=== PATIENT | female | born 1960 | race Caucasian/White ===

== ENCOUNTER 2024-06-19 10:45 | Outpatient (OUT) | payer MEDICARE, SELFPAY ==
[2024-06-19 12:21] LABS: Basophils Absolute Auto 0.1 10^3/uL (0.0-0.1); Basophils Percent Auto 0.5 % (0.2-2.0); Eosinophils Absolute Auto 0.4 10^3/uL (0.0-0.7); Eosinophils Percent Auto 4.2 % (0.9-7.0); Hematocrit 37.1 % (36.0-48.0); Hemoglobin 12.1 g/dL (12.0-16.0); Immature Granulocytes Abs Auto 0.07 10^3/uL (0.00-0.03); Immature Granulocytes Pct Auto 0.8 % (0.0-0.5); Lymphocytes Absolute Auto 2.6 10^3/uL (1.2-3.8); Lymphocytes Percent Auto 28.1 % (20.5-60.0); Mean Corpuscular HGB Conc 32.6 g/dL (29.9-35.2); Mean Corpuscular Hemoglobin 34.4 pg (26.7-34.0); Mean Corpuscular Volume 105.4 fL (81.0-99.0); Mean Platelet Volume 9.9 fL (9.5-13.5); Monocytes Absolute Auto 0.5 10^3/uL (0.3-0.8); Monocytes Percent Auto 5.1 % (1.7-12.0); Neutrophils Absolute Auto 5.7 10^3/uL (1.4-6.5); Neutrophils Percent Auto 61.3 % (43.0-75.0); Platelet Count 199 10^3/uL (150-450); Red Blood Count 3.52 10^6/uL (4.20-5.40); Red Cell Distribution Width 14.1 % (11.0-15.0); White Blood Count 9.3 10^3/uL (4.0-11.0)
[2024-06-19 12:49] LABS: BUN Creatinine Ratio 8.4; Calcium 9.9 mg/dL (8.5-10.1); Chloride 105 mmol/L (98-107); Estimated GFR (African America 35 (>=60); Estimated GFR (Non-African Ame 29 (>=60); Glucose 130 mg/dL (74-106); Potassium 4.1 mmol/L (3.5-5.1); Sodium 142 mmol/L (136-145)
[2024-06-19 12:58] LABS: Anion Gap 13.6; Carbon Dioxide 27.5 mmol/L (21.0-32.0)
[2024-06-19 13:29] LABS: INR 1.04; Partial Thromboplastin Time 27.6 sec (22.3-36.2)
== END 2024-06-19 10:46 | disposition home or self-care (01) ==
PROVIDERS: Visit Provider Urology
DX: Z01.812 Encounter for preprocedural laboratory examination (principal); N20.1 Calculus of ureter
CPT/HCPCS: 36415; 80048; 85025; 85610; 85730

== ENCOUNTER 2024-07-03 09:01 | Day surgery (SDC) | payer MEDICARE, SELFPAY ==
[2024-06-19 11:56] VITALS: BP 106/70; PULSE 78; TEMP 36.3; O2SAT 94; BMI 47.6
[2024-07-03] VITALS (13 sets, daily range): BP systolic 123–151; BP diastolic 62–102; PULSE 68–73; TEMP 36.3–36.4; O2SAT 90–96; BMI 48.0
--- NOTE | 2024-07-03 | FL_ITS ---
The [address] [address] Patient Name: RAYMUNDO DUNBAR MRN: [id number] date: 1960 Sex: F Assigned Patient Location: SURGOUT Current Patient Location: Accession/Order Number: [id number] Exam Date: 07/03/2024 10:46 Report Date: 07/08/2024 11:17 At the request of: DAMIEN ARMENTA Procedure: FL fluoroscopy <1hr NON-READ EXAM: FL fluoroscopy <1hr NON-READ HISTORY: TECHNIQUE: FINDINGS: Please see Operative Report. Electronically authenticated by: RADIOLOGIST NO Date: 07/08/2024 11:17
[2024-07-03] MEDS: LACTATED RINGER'S SOLUTION 1,000 ML 50 ML IV (09:39)
[2024-07-03] MEDS: CEFAZOLIN SODIUM 2 GM/50 ML D5W PREMIX IV (10:28)
--- NOTE | 2024-07-03 11:14 | P.URON_ITS ---
Urology Surgery Operative Note Operative Note Procedure Date: 07/03/24 Time Out Performed: yes Pre-op Diagnosis: Obstructing right distal ureteral calculus; status post right stent placement Post-op Diagnosis: same as pre-op Procedures performed: 1. Cystoscopy. 2. Right stent removal. 3. Right ureteroscopy. 4. Thulium laser lithotripsy of hard ureteral calculus. 5. Stone fragment basket extraction. Anesthesia: GETA Primary Surgeon: Jay Weinstein Complications: None Estimated blood loss (mL): 5 Findings: Extremely hard impacted distal right ureteral calculus Specimens: Right ureteral calculus fragments Indications for Procedures: This lady has a large obstructing distal right ureteral calculus that caused JAROCHO. She was stented several weeks ago. She now presents for definitive u reteroscopic stone manipulation. She has signed an informed consent after risks were explained. Detailed description of Procedure: The patient was brought to the operating room and placed on the operating room table in the supine position. SCDs were placed on the lower extremities and turned on and functioning during the entire case. Timeout was done by all parties in the room. We all agreed upon the patient's identification and the planned procedures for this patient. Genn. anesthesia was then administered. The patient was then repositioned into the modified dorsal lithotomy position. All pressure points were satisfactorily padded. Genitalia were sterilely prepped and draped in usual fashion. I started by passing a 22 Italian Olympus cystoscope per urethra and into the bladder. Panendoscopy revealed no evidence of any tumors or stones. The stent was not encrusted. I then passed a flexible grasping forceps and grasped the end of the stent and brought it out the urethral meatus. A Glidewire was fed up the stent into the kidney and the old stent was removed. I then passed a semirigid ureteroscope adjacent to the wire into the bladder and into the right ureter. Within 2 cm I arrived at the larger stone. It was impacted. I then used a 270 Angstrom laser fiber and passed it through the scope and made contact with the stone. The thulium laser was used first at 6 W then 8 and finally 10 W continuously. This was a very hard stone. It slowly fragmented. The stone had to be chiseled off of the wall of the ureter with the laser fiber. Once it was fragmented well I then used a 0 tip nitinol basket and engaged pieces and dumped them in the base of the bladder. I went up and down the ureter numerous times clearing out pieces until the right ureter was free of stone. The ureteroscope was then removed. I then passed the cystoscope back into the bladder. I elected not to replace the stent and therefore the wire was removed. The Ilich evacuator was used to get numerous stone pieces out from the base of the bladder. These were sent for stone analysis. The bladder was drained of its contents and the scope was then removed. The anesthetic was then reversed. She was then transferred to a [facility] bed and wheeled to PACU in stable condition.
== END 2024-07-03 12:21 | disposition home or self-care (01) ==
PROVIDERS: Visit Provider Urology
PROC: (CPT 52353; principal; 2024-07-03 09:55)
DX: N20.1 Calculus of ureter (principal); E11.40 Type 2 diabetes mellitus with diabetic neuropathy, unspecified; E78.5 Hyperlipidemia, unspecified; I48.91 Unspecified atrial fibrillation; Z86.73 Personal history of transient ischemic attack (TIA), and cerebral infarction without residual deficits; Z96.611 Presence of right artificial shoulder joint; Z79.4 Long term (current) use of insulin; Z79.84 Long term (current) use of oral hypoglycemic drugs; F17.210 Nicotine dependence, cigarettes, uncomplicated; Z79.01 Long term (current) use of anticoagulants; I10 Essential (primary) hypertension; K21.9 Gastro-esophageal reflux disease without esophagitis; E03.9 Hypothyroidism, unspecified; D47.2 Monoclonal gammopathy
CPT/HCPCS: 52353; 76000; 82365; 99999; J0690; J1100; J1885; J2250; J2405; J2704; J3010